=== PATIENT | female | born 1935 | race Caucasian/White ===

== ENCOUNTER 2023-02-11 08:53 | Outpatient (CLI) | payer MEDICARE, BC | END 2023-02-11 08:54 | disposition home or self-care (01) | LOC: CT 08:53 | PROVIDERS: ATTEND Psychiatry & Neurology Neurology | DX: R56.9 Unspecified convulsions (principal) | CPT/HCPCS: 70450 ==

== ENCOUNTER 2024-03-13 16:55 | Inpatient (IN) | payer MEDICARE, BC ==
[2024-03-13 18:25] LABS: #Basophils 0.05 10x3/uL (0.0-0.2); %Basophils 0.6 % (0.0-1.0); %Eosinophils 0.4 % (0.0-10.0); %Lymphocytes 15.2 % (21.0-51.0); %Monocytes 9.4 % (0.0-10.0); %Neutrophils 73.8 % (42.0-75.0); Hematocrit 42.8 % (36.0-47.0); Hemoglobin 12.3 g/dL (12.0-16.0); Mean Corpuscular HGB CONC 28.7 g/dL (32.0-36.0); Mean Corpuscular Hemoglobin 29.4 pg (27.0-31.0); Mean Corpuscular Volume 102.4 fL (78.0-98.0); Mean Platelet Volume 11.3 fL (7.4-10.4); Platelet Count 157 10x3/uL (130-400); RBC Distribution Width 17.1 % (11.5-14.5); Red Blood Cell (RBC) Count 4.18 mill/uL (4.20-5.40)
[2024-03-13 18:46] LABS: ALT (SGPT) 23 U/L (8-55); AST (SGOT) 25 U/L (5-34); Albumin 2.8 g/dL (3.4-4.8); Alkaline Phosphatase 96 U/L (40-110); Anion Gap 14 mmol/L (10-20); BUN (Urea Nitrogen) 44 mg/dL (9.8-20.1); Bilirubin, Total 0.7 mg/dL (0.2-1.2); Calc. Creatinine Clearance 0 mL/min (70-130); Calcium 9.3 mg/dL (7.8-10.44); Carbon Dioxide 47 mmol/L (23-31); Chloride 98 mmol/L (98-107); Estimated GFR 48; Globulin 3.8 g/dL (2.4-3.5); Glucose 92 mg/dL (83-110); Potassium 6.2 mmol/L (3.5-5.1); Protein, Total 6.6 g/dL (5.8-8.1); Sodium 153 mmol/L (136-145)
[2024-03-13 18:49] LABS: Anisocytosis SLIGHT = 6-15 cells HPF (0-5); Hypochromia SLIGHT = 6-15 cells HPF (0-5); Macrocytosis SLIGHT = 6-15 cells HPF (0-5); Platelet Adequacy Comment Platelets Normal; Polychromasia SLIGHT = 2-3 cells HPF (0-2)
[2024-03-13] MEDS ORDERED: cefTRIAXone (ROCEPHIN) 2 GM VIAL ONE (19:58)
[2024-03-13] MEDS ORDERED: Sodium Chloride 0.9% 100 ML ONE (19:58)
[2024-03-13 21:15] LABS: Bacteria/HPF 1+ HPF (None Seen); Bilirubin Negative (Negative); Blood, Urine Negative (Negative); CAUTI Indications for Culture Alt mental st,lethar; Clarity Turbid (Clear); Glucose, Urine (Dipstick) Normal (Negative); Ketone, Urine Negative (Negative); Leukocyte 250 Leu/uL (Negative); Nitrite Negative (Negative); Protein, Urine (Dipstick) 20 mg/dL (Neg-Trace); RBC/HPF 0-3 HPF (0-3); Specific Gravity, Urine 1.015 (1.002-1.036); Squamous Epithelial 0-3 HPF (0-3); Urobilinogen Normal mg/dL (Less than 2); pH, Urine 5.5 (5.0-9.0)
[2024-03-13 21:16] LABS: Urine Culture Reflex Yes Yes
[2024-03-13] MEDS ORDERED: Ondansetron PF 4 MG/2 ML Vial IVP PRN (22:42)
[2024-03-14] MEDS: Dextrose 5% in Water 1,000 ML IV SCH ×2 (00:04→09:24)
[2024-03-14] MEDS: Sodium Polystyrene Sulfonate 15 GM (60 mL) BOT PO SCH (00:15)
[2024-03-14] MEDS: Calcium Chloride 1 GM/10 ML Abboject SYRINGE IVP SCH (01:44)
[2024-03-14] MEDS: levETIRAcetam 500 MG (5 mL) VIAL SLOW IVP SCH ×2 (01:45→09:22)
[2024-03-14] MEDS: Dextrose 10% in Water 100 ML FS SCH (02:14)
[2024-03-14] MEDS: Sodium Polystyrene Sulfonate 15 GM (60 mL) BOT PR SCH (02:14)
[2024-03-14 02:24] LABS: #Basophils Less than 0.03 10x3/uL (0.0-0.2); %Basophils 0.1 % (0.0-1.0); %Eosinophils 0.9 % (0.0-10.0); %Lymphocytes 12.1 % (21.0-51.0); %Neutrophils 80.4 % (42.0-75.0); Hematocrit 43.6 % (36.0-47.0); Hemoglobin 12.7 g/dL (12.0-16.0); Mean Corpuscular HGB CONC 29.1 g/dL (32.0-36.0); Mean Corpuscular Hemoglobin 29.8 pg (27.0-31.0); Mean Corpuscular Volume 102.3 fL (78.0-98.0); Mean Platelet Volume 10.9 fL (7.4-10.4); Platelet Count 131 10x3/uL (130-400); RBC Distribution Width 17.1 % (11.5-14.5); Red Blood Cell (RBC) Count 4.26 mill/uL (4.20-5.40)
[2024-03-14] MEDS: Pramipexole Di-HCl 0.25 MG TAB PO SCH ×2 (02:45→09:22)
[2024-03-14 03:46] LABS: Anion Gap 21 mmol/L (10-20); BUN (Urea Nitrogen) 44 mg/dL (9.8-20.1); Calc. Creatinine Clearance 43 mL/min (70-130); Calcium 10.5 mg/dL (7.8-10.44); Carbon Dioxide 31 mmol/L (23-31); Chloride 105 mmol/L (98-107); Estimated GFR 52; Glucose 106 mg/dL (83-110); Potassium 5.5 mmol/L (3.5-5.1)
[2024-03-14 03:56] LABS: Sodium 151 mmol/L (136-145)
[2024-03-14] MEDS ORDERED: Non-Formulary Item 1 EACH (Levetiracetam [Levetiracetam] 1,000 MG Tablet) IV SCH (09:00)
[2024-03-14] MEDS: Cefepime 1 GM in Sodium Chloride 0.9% 100 ML IVPB SCH (09:22)
[2024-03-14] MEDS: Famotidine/PF 20 mg/2ml Vial SLOW IVP SCH (09:22)
[2024-03-14] MEDS: Metoprolol Succinate XL 25 MG ER.TAB PO SCH (09:27)
[2024-03-14] MEDS: Folic Acid 1 MG TAB PO SCH (09:27)
[2024-03-14] MEDS: Amiodarone 200 MG TAB PO SCH (09:27)
[2024-03-14] MEDS: LOKELMA 10 GM PACKET PO SCH (17:47)
[2024-03-14] MEDS: Ezetimibe 10 MG TAB PO SCH (22:14)
[2024-03-14] MEDS: Rosuvastatin 10 MG TAB PO SCH (22:14)
[2024-03-15] MEDS: Furosemide 40 MG (4 mL) VIAL ONE (02:14)
[2024-03-15] MEDS: Furosemide 40 MG (4 mL) VIAL SLOW IVP SCH ×2 (02:14→15:31)
[2024-03-15 02:20] LABS: Actual Bicarbonate (HCO3a) 37.3 mEq/L (22-28); Base Excess (BEa) 6.7 mEq/L (-2.0 to +3.0); Calcium, Ionized (arterial) 1.18 mmol/L (1.12-1.30); Carboxyhemoglobin (COHb) 1.5 gm% (0.0-3.0); Hematocrit-ABG 41 % (36.0-47.0); Hemoglobin (Hb) 13.8 g/dL (12.0-16.0); O2 Tension (PaO2), arterial 86.2 mmHg (> 60.0); pH, Arterial 7.249 (7.35-7.45)
[2024-03-15 02:23] LABS: CO2 Tension 87.1 mmHg (35.0-45.0)
[2024-03-15 02:24] LABS: Potassium - ABG Lab 6.01 mmol/L (3.70-5.30); Puncture Site RA
[2024-03-15 02:25] LABS: ALV-art Gradient 90.125 mmHg (0-20)
[2024-03-15 03:13] LABS: #Basophils Less than 0.03 10x3/uL (0.0-0.2); #Eosinophils Less than 0.03 10x3/uL (0.0-0.7); %Basophils 0.2 % (0.0-1.0); %Eosinophils 0.1 % (0.0-10.0); %Lymphocytes 5.2 % (21.0-51.0); %Monocytes 4.8 % (0.0-10.0); %Neutrophils 89.3 % (42.0-75.0); Hematocrit 45.1 % (36.0-47.0); Hemoglobin 13.3 g/dL (12.0-16.0); Mean Corpuscular HGB CONC 29.5 g/dL (32.0-36.0); Mean Corpuscular Hemoglobin 29.7 pg (27.0-31.0); Mean Corpuscular Volume 100.7 fL (78.0-98.0); Mean Platelet Volume 10.9 fL (7.4-10.4); Platelet Count 137 10x3/uL (130-400); RBC Distribution Width 17.2 % (11.5-14.5); Red Blood Cell (RBC) Count 4.48 mill/uL (4.20-5.40)
[2024-03-15 03:27] LABS: Lactic Acid 2.36 mmol/L (0.5-2.2)
[2024-03-15] MEDS: Dextrose 50% Abboject 50 ML SYRINGE SLOW IVP SCH (03:35)
[2024-03-15] MEDS: Insulin Regular, Human 100 UNIT/ML 10 ML VIAL IVP SCH (03:35)
[2024-03-15] MEDS: Sodium Bicarb 50 MEQ/50 ML Abboject 8.4% SYRINGE IVP SCH ×2 (03:35→19:04)
[2024-03-15 03:38] LABS: ALT (SGPT) 21 U/L (8-55); AST (SGOT) 24 U/L (5-34); Albumin 2.6 g/dL (3.4-4.8); Alkaline Phosphatase 93 U/L (40-110); Anion Gap 20 mmol/L (10-20); BUN (Urea Nitrogen) 57 mg/dL (9.8-20.1); Bilirubin, Total 0.8 mg/dL (0.2-1.2); Calc. Creatinine Clearance 30 mL/min (70-130); Carbon Dioxide 30 mmol/L (23-31); Chloride 102 mmol/L (98-107); Estimated GFR 34; Glucose 141 mg/dL (83-110); Potassium 6.3 mmol/L (3.5-5.1); Protein, Total 6.6 g/dL (5.8-8.1); Sodium 146 mmol/L (136-145)
[2024-03-15] MEDS ORDERED: Electrolyte Replacement Protocol 1 EACH FS PRN (04:06)
[2024-03-15] MEDS: Dextrose 50% Abboject 50 ML SYRINGE ONE ×2 (06:48→10:57)
[2024-03-15 07:28] LABS: Anion Gap 14 mmol/L (10-20); BUN (Urea Nitrogen) 60 mg/dL (9.8-20.1); Calc. Creatinine Clearance 32 mL/min (70-130); Calcium 8.6 mg/dL (7.8-10.44); Carbon Dioxide 38 mmol/L (23-31); Chloride 104 mmol/L (98-107); Estimated GFR 36; Glucose 82 mg/dL (83-110); Potassium 4.6 mmol/L (3.5-5.1); Sodium 151 mmol/L (136-145)
[2024-03-15 07:33] LABS: Troponin I 0.029 ng/mL (< 0.028)
[2024-03-15] MEDS: Pantoprazole 40 MG VIAL IVP SCH (09:08)
[2024-03-15] MEDS ORDERED: Potassium Chloride 10 MEQ in Dextrose 5 % And 0.9 % NaCl 1,000 ML IV SCH (11:30)
[2024-03-15] MEDS: Dextrose 5% in Water 1,000 ML IV SCH (11:30)
[2024-03-15 11:37] LABS: Actual Bicarbonate (HCO3v) 37.6 mEq/L (22-28); Base Excess 8.7 mEq/L (-2.0 to +3.0); Calcium, Ionized (venous) 1.09 mmol/L (1.16-1.32); Chloride (VBG) 101 mmol/L (98-106); Hematocrit-VBG 35 % (36.0-47.0); Hemoglobin (Hb) 11.9 g/dL (11.7-16.1); Sodium 143 mmol/L (133-146); pH (venous) 7.303 (7.32-7.43)
[2024-03-15] MEDS: NOREPINEPHRINE 8 MG/250 ML-D5W 250 ML IVPB SCH (12:30)
[2024-03-15 12:41] LABS: ALT (SGPT) 18 U/L (8-55); AST (SGOT) 32 U/L (5-34); Albumin 2.1 g/dL (3.4-4.8); Alkaline Phosphatase 70 U/L (40-110); Anion Gap 17 mmol/L (10-20); BUN (Urea Nitrogen) 62 mg/dL (9.8-20.1); Bilirubin, Total 0.7 mg/dL (0.2-1.2); Calc. Creatinine Clearance 33 mL/min (70-130); Calcium 8.4 mg/dL (7.8-10.44); Carbon Dioxide 33 mmol/L (23-31); Chloride 104 mmol/L (98-107); Estimated GFR 38; Globulin 3.2 g/dL (2.4-3.5); Glucose 66 mg/dL (83-110); Potassium 5.7 mmol/L (3.5-5.1); Protein, Total 5.3 g/dL (5.8-8.1); Sodium 148 mmol/L (136-145)
[2024-03-15 14:30] LABS: Fluid, pH - Pleural Fld 7.474 (7.60 - 7.66)
[2024-03-15 14:39] LABS: Pleural Fluid, Amylase Less than 30 U/L (Not Available); Pleural Fluid, Glucose 80 mg/dL; Pleural Fluid, LDH 168 U/L (Not Available); Pleural Fluid, Protein 2.5 g/dL
[2024-03-15 14:41] LABS: RBC Count-Automated (BF) 272672 /cu.mm; WBC/Nucleated-Auto (BF) 2580 /cu.mm
[2024-03-15 14:54] LABS: BF Color Red; Body Fluid Source Thoracentesis Fluid; Clarity Cloudy/Turbid (Clear); Tube # EDTA
[2024-03-15 15:02] LABS: BF Segmented Neutrophils 36 %; Cell Count Non Hematic 50 %; Lymphocytes 14 %
[2024-03-15] MEDS: NOREPINEPHRINE 8 MG/250 ML-D5W 250 ML ONE (17:02)
[2024-03-15 20:36] LABS: Anion Gap 16 mmol/L (10-20); BUN (Urea Nitrogen) 60 mg/dL (9.8-20.1); Calc. Creatinine Clearance 32 mL/min (70-130); Calcium 8.4 mg/dL (7.8-10.44); Carbon Dioxide 37 mmol/L (23-31); Chloride 99 mmol/L (98-107); Estimated GFR 36; Glucose 105 mg/dL (83-110); Sodium 147 mmol/L (136-145)
[2024-03-15] MEDS: levETIRAcetam 500 MG (5 mL) VIAL SLOW IVP SCH (20:46)
[2024-03-16 03:56] LABS: Anion Gap 14 mmol/L (10-20); BUN (Urea Nitrogen) 65 mg/dL (9.8-20.1); Calc. Creatinine Clearance 29 mL/min (70-130); Calcium 8.4 mg/dL (7.8-10.44); Carbon Dioxide 42 mmol/L (23-31); Chloride 95 mmol/L (98-107); Estimated GFR 33; Glucose 122 mg/dL (83-110); Potassium 4.8 mmol/L (3.5-5.1); Sodium 146 mmol/L (136-145)
[2024-03-16 04:19] LABS: #Basophils Less than 0.03 10x3/uL (0.0-0.2); %Basophils 0.1 % (0.0-1.0); %Eosinophils 0.5 % (0.0-10.0); %Lymphocytes 5.9 % (21.0-51.0); %Monocytes 5.5 % (0.0-10.0); %Neutrophils 87.6 % (42.0-75.0); Hematocrit 40.7 % (36.0-47.0); Mean Corpuscular HGB CONC 29.5 g/dL (32.0-36.0); Mean Corpuscular Hemoglobin 29.6 pg (27.0-31.0); Mean Corpuscular Volume 100.2 fL (78.0-98.0); Mean Platelet Volume 11.3 fL (7.4-10.4); Platelet Count 117 10x3/uL (130-400); RBC Distribution Width 17.2 % (11.5-14.5); Red Blood Cell (RBC) Count 4.06 mill/uL (4.20-5.40)
[2024-03-16] MEDS: Dextrose 5 %-0.45 % NaCl 1,000 ML IV SCH (10:04)
[2024-03-16 11:55] VITALS: BMI 27.5
[2024-03-16 13:00] LABS: Base Excess 18.6 mEq/L (-2.0 to +3.0); Calcium, Ionized (venous) 1.01 mmol/L (1.16-1.32); Chloride (VBG) 95 mmol/L (98-106); Hematocrit-VBG 36 % (36.0-47.0); Hemoglobin (Hb) 12.3 g/dL (11.7-16.1); Potassium (VBG) 4.74 mmol/L (3.70-5.30); Sodium 140 mmol/L (133-146); pH (venous) 7.433 (7.32-7.43)
[2024-03-16 13:03] LABS: Actual Bicarbonate (HCO3v) 46.5 mEq/L (22-28)
[2024-03-16] MEDS: acetaZOLAMIDE Sodium 500 mg Vial IVP SCH (15:24)
[2024-03-16] MEDS: Sterile Water 10 ML VIAL IVP SCH (15:26)
[2024-03-16] MEDS: Heparin 5,000 UNITS/ML VIAL SC SCH (20:06)
[2024-03-17 05:33] LABS: #Basophils Less than 0.03 10x3/uL (0.0-0.2); %Basophils 0.1 % (0.0-1.0); %Eosinophils 4.9 % (0.0-10.0); %Lymphocytes 10.7 % (21.0-51.0); %Monocytes 7.5 % (0.0-10.0); %Neutrophils 76.5 % (42.0-75.0); Hematocrit 35.6 % (36.0-47.0); Mean Corpuscular HGB CONC 30.9 g/dL (32.0-36.0); Mean Corpuscular Hemoglobin 29.6 pg (27.0-31.0); Platelet Count 101 10x3/uL (130-400); RBC Distribution Width 17.7 % (11.5-14.5); Red Blood Cell (RBC) Count 3.71 mill/uL (4.20-5.40)
[2024-03-17 05:37] LABS: Anion Gap 11 mmol/L (10-20); BUN (Urea Nitrogen) 53 mg/dL (9.8-20.1); Calc. Creatinine Clearance 40 mL/min (70-130); Carbon Dioxide 40 mmol/L (23-31); Chloride 96 mmol/L (98-107); Potassium 3.3 mmol/L (3.5-5.1); Sodium 144 mmol/L (136-145)
[2024-03-17 05:38] LABS: Calcium 7.9 mg/dL (7.8-10.44); Estimated GFR 47; Glucose 105 mg/dL (83-110)
[2024-03-17] MEDS ORDERED: acetaZOLAMIDE Sodium 250 MG in Sodium Chloride 0.9% 50 ML IVPB SCH (09:00)
[2024-03-17] MEDS: Cefepime 2 GM in Sodium Chloride 0.9% 100 ML IVPB SCH (09:29)
[2024-03-17 10:27] LABS: Lactic Acid 1.41 mmol/L (0.5-2.2)
[2024-03-17] MEDS: Potassium Chloride 20 MEQ in Premix 1 BAG IVPB SCH (11:38)
[2024-03-18 05:37] LABS: Anion Gap 7 mmol/L (10-20); BUN (Urea Nitrogen) 37 mg/dL (9.8-20.1); Calc. Creatinine Clearance 57 mL/min (70-130); Calcium 7.9 mg/dL (7.8-10.44); Carbon Dioxide 37 mmol/L (23-31); Chloride 101 mmol/L (98-107); Estimated GFR 70; Glucose 101 mg/dL (83-110); Potassium 3.2 mmol/L (3.5-5.1); Sodium 142 mmol/L (136-145)
[2024-03-18 05:38] LABS: #Basophils Less than 0.03 10x3/uL (0.0-0.2); %Basophils 0.2 % (0.0-1.0); %Eosinophils 6.1 % (0.0-10.0); %Monocytes 10.1 % (0.0-10.0); %Neutrophils 69.8 % (42.0-75.0); Hematocrit 33.3 % (36.0-47.0); Hemoglobin 10.3 g/dL (12.0-16.0); Mean Corpuscular HGB CONC 30.9 g/dL (32.0-36.0); Mean Corpuscular Volume 97.1 fL (78.0-98.0); Mean Platelet Volume 10.9 fL (7.4-10.4); Platelet Count 80 10x3/uL (130-400); RBC Distribution Width 17.6 % (11.5-14.5); Red Blood Cell (RBC) Count 3.43 mill/uL (4.20-5.40)
[2024-03-18 06:06] LABS: Anisocytosis SLIGHT = 6-15 cells HPF (0-5); Elliptocytes SLIGHT = 2-5 cells HPF (0-1); Hypochromia SLIGHT = 6-15 cells HPF (0-5); Platelet Adequacy Comment Platelets Decreased; Poikilocytosis SLIGHT = 6-15 cells HPF (0-5); Polychromasia MODERATE = 3-4 cells HPF (0-2)
[2024-03-18] MEDS: Potassium Chloride 20 MEQ TAB PO SCH (07:30)
[2024-03-18] MEDS: Potassium Chloride 20 MEQ in Premix 1 BAG IVPB SCH (07:54)
[2024-03-18] MEDS: Dextrose 5 %-0.45 % NaCl 500 ML IV SCH (09:11)
[2024-03-18] MEDS: Midodrine HCl 5 MG TAB PO SCH (10:06)
[2024-03-18] MEDS ORDERED: Dextrose 5% in Water 1,000 ML IV PRN (11:39)
[2024-03-18] MEDS ORDERED: Glucagon 1 MG/ML KIT IM PRN (11:39)
[2024-03-18] MEDS ORDERED: Insulin Lispro 100 UNIT/ML 10 ML VIAL SC PRN (11:39)
[2024-03-18] MEDS ORDERED: Sterile Water 10 ML VIAL FS PRN (12:00)
[2024-03-18] MEDS: OLANZapine 10 MG VIAL IM SCH (12:08)
[2024-03-19 05:56] LABS: #Basophils Less than 0.03 10x3/uL (0.0-0.2); %Basophils 0.3 % (0.0-1.0); %Eosinophils 3.5 % (0.0-10.0); %Lymphocytes 10.3 % (21.0-51.0); %Monocytes 11.8 % (0.0-10.0); %Neutrophils 73.8 % (42.0-75.0); Hematocrit 39.4 % (36.0-47.0); Hemoglobin 11.9 g/dL (12.0-16.0); Mean Corpuscular HGB CONC 30.2 g/dL (32.0-36.0); Mean Corpuscular Volume 96.1 fL (78.0-98.0); Mean Platelet Volume 11.4 fL (7.4-10.4); Platelet Count 83 10x3/uL (130-400); RBC Distribution Width 17.7 % (11.5-14.5)
[2024-03-19 06:09] LABS: Anion Gap 7 mmol/L (10-20); BUN (Urea Nitrogen) 25 mg/dL (9.8-20.1); Calc. Creatinine Clearance 60 mL/min (70-130); Calcium 8.3 mg/dL (7.8-10.44); Carbon Dioxide 32 mmol/L (23-31); Chloride 106 mmol/L (98-107); Estimated GFR 74; Glucose 101 mg/dL (83-110); Potassium 3.4 mmol/L (3.5-5.1); Sodium 142 mmol/L (136-145)
[2024-03-19] MEDS: Potassium Chloride 20 MEQ TAB PO SCH (08:52)
[2024-03-19 19:40] LABS: Actual Bicarbonate (HCO3a) 30.3 mEq/L (22-28); Base Excess (BEa) 0.4 mEq/L (-2.0 to +3.0); Carboxyhemoglobin (COHb) 1.6 gm% (0.0-3.0); Hematocrit-ABG 39 % (36.0-47.0); Hemoglobin (Hb) 13.4 g/dL (12.0-16.0); O2 Tension (PaO2), arterial 75.4 mmHg (> 60.0); Potassium - ABG Lab 4.14 mmol/L (3.70-5.30); pH, Arterial 7.213 (7.35-7.45)
[2024-03-19 19:41] LABS: Calcium, Ionized (arterial) 1.22 mmol/L (1.12-1.30)
[2024-03-19 19:45] LABS: Puncture Site Right Radial artery
[2024-03-19] MEDS: DOPamine 400 MG/D5W 250 ML 250 ML ONE (19:48)
[2024-03-19 20:56] LABS: #Basophils 0.04 10x3/uL (0.0-0.2); %Basophils 0.4 % (0.0-1.0); %Eosinophils 2.9 % (0.0-10.0); %Lymphocytes 13.3 % (21.0-51.0); %Neutrophils 71.9 % (42.0-75.0); Hematocrit 46.2 % (36.0-47.0); Hemoglobin 13.6 g/dL (12.0-16.0); Mean Corpuscular HGB CONC 29.4 g/dL (32.0-36.0); Mean Corpuscular Hemoglobin 29.9 pg (27.0-31.0); Mean Corpuscular Volume 101.5 fL (78.0-98.0); Mean Platelet Volume 10.5 fL (7.4-10.4); Platelet Count 107 10x3/uL (130-400); RBC Distribution Width 18.1 % (11.5-14.5); Red Blood Cell (RBC) Count 4.55 mill/uL (4.20-5.40)
[2024-03-19 20:58] LABS: Anion Gap 13 mmol/L (10-20); BUN (Urea Nitrogen) 22 mg/dL (9.8-20.1); Calc. Creatinine Clearance 53 mL/min (70-130); Carbon Dioxide 28 mmol/L (23-31); Chloride 106 mmol/L (98-107); Estimated GFR 64; Glucose 107 mg/dL (83-110); Potassium 4.2 mmol/L (3.5-5.1); Sodium 143 mmol/L (136-145)
[2024-03-20 06:23] LABS: #Basophils 0.03 10x3/uL (0.0-0.2); %Basophils 0.2 % (0.0-1.0); %Eosinophils 2.1 % (0.0-10.0); %Lymphocytes 9.8 % (21.0-51.0); %Monocytes 13.4 % (0.0-10.0); Hematocrit 43.4 % (36.0-47.0); Hemoglobin 13.1 g/dL (12.0-16.0); Mean Corpuscular HGB CONC 30.2 g/dL (32.0-36.0); Mean Corpuscular Volume 99.3 fL (78.0-98.0); Mean Platelet Volume 11.4 fL (7.4-10.4); Platelet Count 86 10x3/uL (130-400); RBC Distribution Width 17.4 % (11.5-14.5); Red Blood Cell (RBC) Count 4.37 mill/uL (4.20-5.40)
[2024-03-20 07:04] LABS: Anion Gap 15 mmol/L (10-20); BUN (Urea Nitrogen) 23 mg/dL (9.8-20.1); Calc. Creatinine Clearance 57 mL/min (70-130); Carbon Dioxide 25 mmol/L (23-31); Chloride 108 mmol/L (98-107); Estimated GFR 69; Glucose 104 mg/dL (83-110); Potassium 5.4 mmol/L (3.5-5.1); Sodium 143 mmol/L (136-145)
[2024-03-20] MEDS: Furosemide 40 MG (4 mL) VIAL SLOW IVP SCH (09:45)
[2024-03-20] MEDS: Dextrose 50% Abboject 50 ML SYRINGE SLOW IVP PRN (13:00)
[2024-03-20] MEDS: Bumetanide 1 MG/4 ML VIAL IVP ONE (13:05)
[2024-03-20] MEDS: DOPamine 400 MG/D5W 250 ML 250 ML IVPB SCH (16:10)
[2024-03-21 05:17] LABS: Anion Gap 13 mmol/L (10-20); BUN (Urea Nitrogen) 20 mg/dL (9.8-20.1); Calc. Creatinine Clearance 67 mL/min (70-130); Calcium 8.5 mg/dL (7.8-10.44); Carbon Dioxide 31 mmol/L (23-31); Chloride 106 mmol/L (98-107); Estimated GFR 83; Glucose 81 mg/dL (83-110); Potassium 3.6 mmol/L (3.5-5.1); Sodium 146 mmol/L (136-145)
[2024-03-21 05:18] LABS: #Basophils 0.03 10x3/uL (0.0-0.2); %Basophils 0.3 % (0.0-1.0); %Eosinophils 2.4 % (0.0-10.0); %Monocytes 8.3 % (0.0-10.0); %Neutrophils 77.4 % (42.0-75.0); Hematocrit 43.1 % (36.0-47.0); Hemoglobin 13.3 g/dL (12.0-16.0); Mean Corpuscular HGB CONC 30.9 g/dL (32.0-36.0); Mean Corpuscular Hemoglobin 29.7 pg (27.0-31.0); Mean Corpuscular Volume 96.2 fL (78.0-98.0); Mean Platelet Volume 11.1 fL (7.4-10.4); Platelet Count 90 10x3/uL (130-400); RBC Distribution Width 17.8 % (11.5-14.5); Red Blood Cell (RBC) Count 4.48 mill/uL (4.20-5.40)
[2024-03-21] MEDS: Pantoprazole 40 MG DR.TAB PO SCH (09:11)
[2024-03-21] MEDS ORDERED: Sterile Water 10 ML VIAL FS PRN (09:15)
[2024-03-21] MEDS: Bumetanide 1 MG/4 ML VIAL IVP SCH (14:34)
[2024-03-21] MEDS: OLANZapine 10 MG VIAL IM SCH (18:08)
[2024-03-22 04:05] LABS: #Basophils 0.03 10x3/uL (0.0-0.2); %Basophils 0.4 % (0.0-1.0); %Eosinophils 4.3 % (0.0-10.0); %Lymphocytes 13.6 % (21.0-51.0); %Monocytes 9.6 % (0.0-10.0); %Neutrophils 71.4 % (42.0-75.0); Hematocrit 39.5 % (36.0-47.0); Mean Corpuscular HGB CONC 30.4 g/dL (32.0-36.0); Mean Corpuscular Hemoglobin 29.8 pg (27.0-31.0); Mean Platelet Volume 10.5 fL (7.4-10.4); Platelet Count 102 10x3/uL (130-400); RBC Distribution Width 18.3 % (11.5-14.5); Red Blood Cell (RBC) Count 4.03 mill/uL (4.20-5.40)
[2024-03-22 04:15] LABS: Anion Gap 9 mmol/L (10-20); BUN (Urea Nitrogen) 22 mg/dL (9.8-20.1); Calc. Creatinine Clearance 66 mL/min (70-130); Calcium 8.4 mg/dL (7.8-10.44); Carbon Dioxide 37 mmol/L (23-31); Chloride 104 mmol/L (98-107); Estimated GFR 83; Glucose 80 mg/dL (83-110); Potassium 3.2 mmol/L (3.5-5.1); Sodium 147 mmol/L (136-145)
[2024-03-22] MEDS: Potassium Chloride 20 MEQ TAB PO SCH (08:36)
[2024-03-22] MEDS: acetaZOLAMIDE Sodium 500 mg Vial IVP SCH (15:55)
[2024-03-22] MEDS: Sterile Water 10 ML VIAL IVP SCH (15:55)
[2024-03-22] MEDS: levETIRAcetam 500 MG TAB PO SCH (20:36)
[2024-03-23 04:28] LABS: #Basophils 0.04 10x3/uL (0.0-0.2); %Basophils 0.7 % (0.0-1.0); %Eosinophils 5.3 % (0.0-10.0); %Lymphocytes 15.7 % (21.0-51.0); %Monocytes 9.5 % (0.0-10.0); %Neutrophils 67.8 % (42.0-75.0); Hematocrit 39.1 % (36.0-47.0); Hemoglobin 11.8 g/dL (12.0-16.0); Mean Corpuscular HGB CONC 30.2 g/dL (32.0-36.0); Mean Corpuscular Hemoglobin 30.2 pg (27.0-31.0); Mean Platelet Volume 10.2 fL (7.4-10.4); Platelet Count 103 10x3/uL (130-400); RBC Distribution Width 18.6 % (11.5-14.5); Red Blood Cell (RBC) Count 3.91 mill/uL (4.20-5.40)
[2024-03-23 04:33] LABS: Anion Gap 11 mmol/L (10-20); BUN (Urea Nitrogen) 23 mg/dL (9.8-20.1); Calcium 8.4 mg/dL (7.8-10.44); Carbon Dioxide 39 mmol/L (23-31); Chloride 103 mmol/L (98-107); Glucose 77 mg/dL (83-110); Potassium 3.9 mmol/L (3.5-5.1); Sodium 149 mmol/L (136-145)
[2024-03-23 05:08] LABS: Calc. Creatinine Clearance 42 mL/min (70-130); Estimated GFR 51
[2024-03-24 02:16] VITALS: BP 109/68
[2024-03-24 05:29] VITALS: BMI 26.2
[2024-03-24 16:48] VITALS: TEMP 97
[2024-03-31 09:09] LABS: Potassium (VBG) 7.07 mmol/L (3.70-5.30)
== END 2024-03-24 16:51 | disposition hospice, home (50) | DRG 100 ==
LOC: ERS 16:55 → 2NO 21:58 → IMCU/EMU 03-15 02:45 → CCU 03-15 19:24 → IMCU/EMU 03-19 19:21
PROVIDERS: ADMIT Hospitalist; ATTEND Internal Medicine
PROC: 0W9B3ZZ Drainage of Left Pleural Cavity, Percutaneous Approach (ICD-10-PCS; principal; 2024-03-15)
PROC: 4A133R1 Monitoring of Arterial Saturation, Peripheral, Percutaneous Approach (ICD-10-PCS; 2024-03-15)
PROC: 3E033XZ Introduction of Vasopressor into Peripheral Vein, Percutaneous Approach (ICD-10-PCS; 2024-03-15)
PROC: 5A09457 Assistance with Respiratory Ventilation, 24-96 Consecutive Hours, Continuous Positive Airway Pressure (ICD-10-PCS; 2024-03-15)
PROC: 5A0945A Assistance with Respiratory Ventilation, 24-96 Consecutive Hours, High Flow/Velocity Cannula (ICD-10-PCS; 2024-03-16)
DX: G40.909 Epilepsy, unspecified, not intractable, without status epilepticus (principal); G92.8 Other toxic encephalopathy; G93.41 Metabolic encephalopathy; J96.02 Acute respiratory failure with hypercapnia; I50.33 Acute on chronic diastolic (congestive) heart failure; N39.0 Urinary tract infection, site not specified; E87.0 Hyperosmolality and hypernatremia; J90 Pleural effusion, not elsewhere classified; N17.9 Acute kidney failure, unspecified; I13.0 Hypertensive heart and chronic kidney disease with heart failure and stage 1 through stage 4 chronic kidney disease, or unspecified chronic kidney disease; E87.3 Alkalosis; Z66 Do not resuscitate; Z51.5 Encounter for palliative care; I48.91 Unspecified atrial fibrillation; Z95.0 Presence of cardiac pacemaker; Z88.0 Allergy status to penicillin; Z88.8 Allergy status to other drugs, medicaments and biological substances; E86.0 Dehydration; E87.5 Hyperkalemia; N18.9 Chronic kidney disease, unspecified; I27.20 Pulmonary hypertension, unspecified; F03.A0 Unspecified dementia, mild, without behavioral disturbance, psychotic disturbance, mood disturbance, and anxiety; E87.6 Hypokalemia; M40.209 Unspecified kyphosis, site unspecified
CPT/HCPCS: 36415; 36416; 36600; 70450; 71045; 80048; 80053; 81001; 82150; 82805; 82945; 83605; 83615; 83880; 83930; 83935; 83986; 84157; 84300; 84484; 85025; 85060; 87040; 87070; 87086; 87102; 87116; 87205; 87206; 88112; 89051; 93005; 93010; 93306; 94660; 96361; 96365; J0692; J0696; J1120; J1265; J1644; J1815; J1940; J1953; J2470; J3480; J3490; J7042; J7070; J7999